=== PATIENT | female | born 1980 | race African-American/Black ===

== ENCOUNTER 2017-05-31 09:39 | Emergency (ER) | payer OTHER ==
[~2017-05-31] VITALS: Ht 170.2 cm; Wt 103.9 kg
[2017-05-31 10:11] VITALS: BP 144/74
[2017-05-31 10:38] LABS: BASOPHILS # (AUTO) 0.1 K/uL (0.00-0.22); BASOPHILS % (AUTO) 0.8 % (0.0-2.0); EOSINOPHILS # (AUTO) 0.2 K/uL (0-0.4); EOSINOPHILS % (AUTO) 1.4 % (0.0-4.0); HEMOGLOBIN 12.2 g/dL (12.0-16.0); LYMPHOCYTES # (AUTO) 2.2 K/uL (2.5-16.5); LYMPHOCYTES % (AUTO) 20.1 % (20.5-51.1); MEAN CORPUSCULAR HEMOGLOBIN 27 pg (27-31); MEAN CORPUSCULAR HGB CONC 33 g/dL (33-37); MEAN CORPUSCULAR VOLUME 82 fL (80-94); MONOCYTES # (AUTO) 0.3 K/uL (0.8-1.0); MONOCYTES % (AUTO) 2.9 % (1.7-9.3); NEUTROPHILS % (AUTO) 74.8 % (42.2-75.2); PLATELET COUNT (AUTO) 217 K/uL (140-450); RED BLOOD CELL COUNT(AUTO) 4.52 MIL/uL (4.20-5.40); RED CELL DISTRIBUTION WIDTH 15.5 % (11.6-13.7); WHITE BLOOD COUNT (AUTO) 10.8 K/uL (4.8-10.8)
--- NOTE | 2017-05-31 10:42 | NUR ---
Patient taken to U/S via wheelchair at this time.
--- NOTE | 2017-05-31 11:07 | NUR ---
Patient ambulated to bed 8 at this time.
--- NOTE | 2017-05-31 11:13 | NUR ---
PT PRESENTS TO ER FOR EVALUATION OF VAGINAL BLEEDING AND ABDOMINAL CRAMPING DURING . LMP 02/05/17, EDC 11/14/17.HX OF HYPERLIPIDEMIA. DENIES N/V/D; SKIN IS PINK/WARM/DRY; AAOX4 WITH EVEN AND STEADY GAIT; LUNGS CLEAR BL; HR EVEN AND REGULAR; PT DENIES ANY FEVER, CP, SOB, OR COUGH AT THIS TIME; PATIENT STATES PAIN OF 0/10 AT THIS TIME; VSS; PATIENT POSITIONED FOR COMFORT; HOB ELEVATED; BEDRAILS UP X2; BED DOWN. ER MD MADE AWARE OF PT STATUS.
[2017-05-31 11:44] VITALS: BP 136/72
--- NOTE | 2017-05-31 11:44 | NUR ---
Patient discharged with v/s stable. Written and verbal after care instructions given and explained. Patient verbalized understanding. Ambulatory with steady gait. All questions addressed prior to discharge. Advised to follow up with PMD/OB.ADVISED TO AVOID STRENOUS ACTIVITIES AT THIS TIME.
[2017-05-31 12:14] LABS: APPEARANCE,URINE HAZY (CLEAR); BILIRUBIN,URINE NEGATIVE (NEGATIVE); BLOOD, URINE 1+ (NEGATIVE); COLOR,URINE YELLOW (YELLOW); LEUKOCYTE ESTERASE ,URINE 1+ (NEGATIVE); NITRITE, URINE NEGATIVE (NEGATIVE); UGLUCOSE 1+ (NEGATIVE)
[2017-05-31 13:00] LABS: RBC,URINE 0-5 (RARE) /HPF (0-5)
[2017-05-31 13:01] LABS: TRICHOMONAS,URINE Few /HPF (None Seen)
== END 2017-05-31 11:44 | disposition home or self-care (01) ==
LOC: MED 09:39
DX: O20.0 Threatened abortion (principal); E78.5 Hyperlipidemia, unspecified; Z3A.16 16 weeks gestation of pregnancy; Z88.0 Allergy status to penicillin; Z88.5 Allergy status to narcotic agent
CPT/HCPCS: 36415; 76817; 81001; 84702; 85025; 86900; 86901; 87086; 99285; Q0092

== ENCOUNTER 2023-11-24 08:22 | Emergency (ER) | payer OTHER ==
[~2023-11-24] VITALS: Ht 170.2 cm; Wt 104.3 kg
[2023-11-24 08:41] VITALS: BP 151/75; PULSE 92; RESP 18; TEMP 98.3; O2SAT 97
[2023-11-24 09:52] LABS: BASOPHILS # (AUTO) 0.1 K/uL (0.00-0.22); EOSINOPHILS # (AUTO) 0.1 K/uL (0-0.4); HEMATOCRIT 27.7 % (36-48); HEMOGLOBIN 8.9 g/dL (12.0-16.0); LYMPHOCYTES % (AUTO) 29.7 % (20.5-51.1); MEAN CORPUSCULAR HEMOGLOBIN 25 pg (27-31); MEAN CORPUSCULAR HGB CONC 32 g/dL (33-37); MEAN CORPUSCULAR VOLUME 76.1 fL (80-94); MONOCYTES # (AUTO) 0.3 K/uL (0.8-1.0); MONOCYTES % (AUTO) 5.2 % (1.7-9.3); NEUTROPHILS # (AUTO) 4.1 K/uL (1.8-7.7); NEUTROPHILS % (AUTO) 62.1 % (42.2-75.2); PLATELET COUNT (AUTO) 309 K/uL (140-450); RED BLOOD CELL COUNT(AUTO) 3.64 MIL/uL (4.20-5.40); RED CELL DISTRIBUTION WIDTH 16.8 % (11.6-13.7); WHITE BLOOD COUNT (AUTO) 6.6 K/uL (4.8-10.8)
[2023-11-24 10:03] LABS: APPEARANCE,URINE TURBID (CLEAR); BILIRUBIN,URINE 1+ (NEGATIVE); BLOOD, URINE 3+ (NEGATIVE); COLOR,URINE BROWN (YELLOW); LEUKOCYTE ESTERASE ,URINE TRACE (NEGATIVE); NITRITE, URINE NEGATIVE (NEGATIVE); PROTEIN,URINE 1+ (NEGATIVE); UGLUCOSE NEGATIVE (NEGATIVE); UROBILINOGEN,URINE 0.2 EU/dL (0.2 - 1)
[2023-11-24 10:09] LABS: ANION GAP 11.3 (8-16); CALCIUM 8.2 mg/dL (8.5-10.1); CARBON DIOXIDE 26.4 mmol/L (21-32); CREATININE 0.7 mg/dL (0.6-1.3); POTASSIUM 3.7 mmol/L (3.5-5.1)
[2023-11-24 10:10] LABS: ICTOTEST NEGATIVE (NEGATIVE)
[2023-11-24 10:15] LABS: BACTERIA,URINE 10-30 (MOD) /HPF (None Seen); RBC,URINE 11-20 (MOD) /HPF (0-5); SQUAMOUS EPITHELIAL CELL,UR 4-10 (MOD) /LPF (0-3 (FEW)); WBC,URINE 0-5 /HPF (0-5)
[2023-11-24 10:22] LABS: ALBUMIN 2.8 g/dL (3.4-5.0); TOTAL BILIRUBIN 0.2 mg/dL (0.0-1.0); TOTAL PROTEIN, SERUM 6.7 g/dL (6.4-8.2)
[2023-11-24] MEDS ORDERED: IBUP-2213 PO (11:29)
[2023-11-24] MEDS ORDERED: CIPR250T6 PO (11:29)
[2023-11-24 11:41] VITALS: BP 148/72; PULSE 89; RESP 18; TEMP 98; O2SAT 96
== END 2023-11-24 11:40 | disposition home or self-care (01) ==
LOC: MED 08:22
DX: N93.8 Other specified abnormal uterine and vaginal bleeding (principal); D25.9 Leiomyoma of uterus, unspecified; N83.202 Unspecified ovarian cyst, left side; D64.9 Anemia, unspecified; N30.01 Acute cystitis with hematuria; I10 Essential (primary) hypertension; Z98.51 Tubal ligation status; Z98.890 Other specified postprocedural states; Z79.899 Other long term (current) drug therapy; Z88.0 Allergy status to penicillin; Z88.5 Allergy status to narcotic agent
CPT/HCPCS: 36415; 76856; 80048; 80076; 81001; 81025; 85025; 86886; 86900; 86901; 87086; 93976; 99284; Q0092